=== PATIENT | female | born 1960 | race Caucasian/White ===

== ENCOUNTER → 2017-02-28 | Outpatient (CLI) | payer BC ==
[~2017-02-28] MED LIST: ALBINS/ INH; ALBU1AER9 INH; AMLO-114 PO; DTR5 PO; EFFSR75 PO; FEXO1TAB46 PO; FLVHFA110 INH; HYDROCHLOROTHIAZIDE PO; LORA-741 PO; LOSA1TAB38 PO; OLOP0.1S2 OPB; SNG10 PO; TRIAMTERENE PO; ZCRT/40 PO
--- NOTE | 2017-03-01 14:35 | MAMMOGRAPHY REPORT ---
BILATERAL DIGITAL SCREENING MAMMOGRAM TOMOSYNTHESIS WITH CAD: 02/28/2017 CLINICAL HISTORY: Routine screening. TECHNIQUE: Breast tomosynthesis in addition to standard 2D mammography was performed. Current study was also evaluated with a Computer Aided Detection (CAD) system. COMPARISON: Comparison is made to exams dated: 02/25/2016 mammogram, 02/23/2015 mammogram, 02/19/2014 m ammogram, 02/14/2013 mammogram, 02/11/2013 mammogram, and 02/05/2012 mammogram - [facility] nter. BREAST COMPOSITION: There are scattered areas of fibroglandular density in both breasts. FINDINGS: No suspicious masses, calcifications, or areas of architectural distortion are noted in ei ther breast. There has been no significant interval change compared to prior exams. A biopsy marker clip is again noted in the right medial breast. IMPRESSION: ACR BI-RADS CATEGORY 2: BENIGN There is no mammographic evidence of malignancy. A 1 year screening mammogram is recommended. The pa tient will receive written notification of the results. Approximately 10% of breast cancers are not detected with mammography. A negative mammographic report should not delay biopsy if a clinically suggestive mass is present. Mary Ann Ambriz M.D. /:02/28/2017 16:30:29 Clock Repairer: Cindy MORFIN(Caren)(M), [facility] letter sent: Normal 1/2 BI-RADS Code: ACR BI-RADS Category 2: Benign
== END | disposition home or self-care (01) ==
LOC: C.MAMM 16:03
PROVIDERS: ATTEND Family Medicine
DX: Z12.31 Encounter for screening mammogram for malignant neoplasm of breast (principal)